=== PATIENT | male | born 1960 | race Caucasian/White ===

== ENCOUNTER 2017-03-09 14:07 | Emergency (ER) | payer MEDICARE, MEDICAID ==
[~2017-03-09] VITALS: Wt 91.2 kg
[~2017-03-09 14:07] MED LIST: ALDACTIZIDE 25-1 TAB PO; AMOXICILLIN500 MG PO; ANAPROX DS550 MG PO; ANTIBIOTIC PO; ARNUITY EL100 MCG/Ac IH; ASPIRIN CHILDRE81 MG PO; AUGMENTIN 875875 MG PO; BP MED; CHANTIX START M1 TAB PO; CILOXAN 5 ML5 M1 OP; CILOXAN 5 ML5 M1 OT; CIPROFLOXACIN500 MG PO; CORTISPORIN SUS10 ML OT; DIABETA1.25 MG PO; EFFEXOR50 MG PO; FLEXERIL10 MG PO; FLEXERIL5 MG PO; GLYBURIDE; HYDROCODONE BIT1 T11 PO; INVOKANA300 M1 PO; LEVAQUIN500 M2 PO; LIPITOR10 MG PO; LIPITOR20 MG PO; LOPRESSOR; Lopressor25 MG PO; METFORMIN500 MG PO; MOTRIN800 MG PO; NAPROSYN500 MG PO; PLAVIX75 MG PO; PREDNICOT20 MG PO; ROBAXIN500 MG PO; SEROQUEL200 MG PO; TOBRADEX 0.3-0.15 ML OT; TRAMADOL HCL50 MG PO; VICODIN 5/500 505 MG PO; VOLTAREN50 M1 PO; ZESTRIL10 MG PO; ZITHROMAX Z PA250 MG PO
[2017-03-09 14:15] VITALS: BP 97/57
[2017-03-09] MEDS ORDERED: AUGMENTIN 875875 MG PO (15:32)
[2017-03-09] MEDS ORDERED: ZYRTEC10 MG PO (15:32)
[2017-03-09] MEDS ORDERED: PREDNISONE20 M1 PO (15:32)
[2017-03-09] MEDS ORDERED: NAPROSYN500 MG PO (15:32)
== END 2017-03-09 15:35 | disposition home or self-care (01) ==
LOC: ED 14:07
DX: J01.90 Acute sinusitis, unspecified (principal); J40 Bronchitis, not specified as acute or chronic; R09.1 Pleurisy; F17.200 Nicotine dependence, unspecified, uncomplicated; Z88.7 Allergy status to serum and vaccine; Z79.82 Long term (current) use of aspirin

== ENCOUNTER → 2017-07-12 | Day surgery (SDC) | payer MEDICARE, MEDICAID ==
[~2017-07-12] VITALS: Ht 177.8 cm; Wt 96.2 kg
[~2017-07-12] MED LIST changes: +METFORMIN HCL1000 MG PO; +PREDNISONE20 M1 PO; +TRAD5TAB1 PO; +TRULICITY0.75 MG/0. SC; +VITAMIN C500 M6 PO; +VITAMIN E400 UNI1 PO; +ZYRTEC10 MG PO
--- NOTE | ~2017-07-12 | O ---
[place], [place] OPERATIVE NOTE NAME: JESUS KING UNIT #: [id number] ROOM: DOCTOR: PRABHAKAR RENEE MD BIRTHDATE: [birth year] DOS: A 57-year-old gentleman who has presented with colonic screening. ALLERGIES: No known medication. FAMILY HISTORY: Liver CA and colon CA in dad. PAST SURGICAL HISTORY: Tonsillectomy, bilateral myringotomy ear tube and cardiac stents x 1. PAST MEDICAL HISTORY: Hypertension, diabetes, naproxen for degenerative joint disease and pain. SOCIAL HISTORY: Smoker, who has stopped alcohol. PROCEDURE: Today's procedure part of investigation is colonoscopy plus snare polypectomy x 2. PREMEDICATION: Versed and Diprivan. SCOPE: Olympus forward-viewing colonoscope 10L video. REPORT: After putting the patient in the left lateral position and after application of lubricant to the scope, the scope was introduced. Thereafter, under direct visualization, I advanced through the length of colon without difficulty. Diverticulosis was identified. Sessile polypoid lesion on rectal pouch 1 in sigmoid colon with snare was polypectomized. Both samples recovered. Base of the cecum explored, appendiceal orifice identified and ileocecal valve was defined. Diverticulosis photographed and documented. Base of the cecum explored, appendiceal orifice identified and ileocecal valve was defined. Scope was gradually withdrawn. Patient extubated, tolerated the procedure well. PLAN: The patient to start his aspirin from Saturday morning and high fiber diet. ACTIVITY: Ad shalini. FOLLOWUP: Routinely with you in office, p.r.n. visit with us in [facility]. Thank you very much indeed for your kind referral. [place], [place] OPERATIVE NOTE NAME: JESUS KING UNIT #: [id number] ROOM: DOCTOR: PRABHAKAR RENEE MD BIRTHDATE: [birth year] PRABHAKAR RENEE MD CM:OPRECORD:OPERATIVE NOTE 1322 [id number] PRABHAKAR RENEE MD 07/16/17 1351 interface
[2017-07-12 11:15] VITALS: BP 117/74
[2017-07-12 13:12] VITALS: BP 118/80
[2017-07-12 13:27] VITALS: BP 126/85
[2017-07-12 13:43] VITALS: BP 128/80
== END | disposition home or self-care (01) ==
LOC: SDC 07-09 08:00
DX: Z12.11 Encounter for screening for malignant neoplasm of colon (principal); D12.5 Benign neoplasm of sigmoid colon; K62.1 Rectal polyp; I10 Essential (primary) hypertension; K57.30 Diverticulosis of large intestine without perforation or abscess without bleeding; E11.9 Type 2 diabetes mellitus without complications; M19.90 Unspecified osteoarthritis, unspecified site; Z79.899 Other long term (current) drug therapy; F17.210 Nicotine dependence, cigarettes, uncomplicated; Z95.5 Presence of coronary angioplasty implant and graft; Z98.890 Other specified postprocedural states; Z80.8 Family history of malignant neoplasm of other organs or systems; Z80.0 Family history of malignant neoplasm of digestive organs; I25.10 Atherosclerotic heart disease of native coronary artery without angina pectoris; I25.2 Old myocardial infarction; E78.00 Pure hypercholesterolemia, unspecified; J43.9 Emphysema, unspecified; Z87.01 Personal history of pneumonia (recurrent); Z82.49 Family history of ischemic heart disease and other diseases of the circulatory system; Z83.3 Family history of diabetes mellitus

== ENCOUNTER → 2017-07-25 | Outpatient (CLI) | payer MEDICARE, MEDICAID | END | disposition home or self-care (01) | LOC: D 10:11 | DX: E11.9 Type 2 diabetes mellitus without complications (principal) ==

== ENCOUNTER 2017-09-20 18:30 | Emergency (ER) | payer MEDICARE, MEDICAID ==
[~2017-09-20] VITALS: Wt 90.7 kg
[2017-09-20 18:34] VITALS: BP 129/71
[2017-09-20] MEDS ORDERED: Tobrex Ophth S2.5 ML OPH (18:54)
== END 2017-09-20 18:58 | disposition home or self-care (01) ==
LOC: ED 18:30
DX: H00.022 Hordeolum internum right lower eyelid (principal); R03.0 Elevated blood-pressure reading, without diagnosis of hypertension; F17.200 Nicotine dependence, unspecified, uncomplicated; Z88.7 Allergy status to serum and vaccine

== ENCOUNTER → 2017-10-08 | Outpatient (CLI) | payer MEDICARE, MEDICAID ==
[~2017-10-08] MED LIST changes: +Tobrex Ophth S2.5 ML OPH
== END | disposition home or self-care (01) ==
LOC: CT 10:29 → CP 12:00
DX: J32.0 Chronic maxillary sinusitis (principal); J32.2 Chronic ethmoidal sinusitis; R25.1 Tremor, unspecified

== ENCOUNTER → 2017-10-14 | Outpatient (CLI) | payer MEDICARE, MEDICAID ==
[2017-10-14 11:15] LABS: BILIRUBIN NEGATIVE (NEGATIVE); BLOOD NEGATIVE (NEGATIVE); CLARITY CLEAR (CLEAR); COLOR YELLOW (YELLOW); GLUCOSE NEGATIVE (NEGATIVE); KETONE NEGATIVE (NEGATIVE); LEUKO ESTERASE NEGATIVE (NEGATIVE); NITRITE NEGATIVE (NEGATIVE); PH 5.5 (5.0-9.0); SPECIFIC GRAVITY 1.025 (1.005-1.030); UROBILINOGEN 0.2 E.U./dl (0.2-1.0)
[2017-10-14 11:30] LABS: WBC 0-2 wbc/hpf (0-5)
[2017-10-14 11:46] LABS: ALBUMIN 3.9 gm/dl (3.1-4.5); BILIRUBIN, DIRECT 0.1 mg/dL (0.0-0.2); BUN 13 mg/dl (7-24); CHLORIDE 103 mmol/L (98-107); CHOLESTEROL 241 mg/dL (<200); CREATININE 0.89 mg/dL (0.70-1.30); POTASSIUM 3.8 mmol/L (3.5-5.1); SGOT/AST 17 IU/L (3-35); SGPT/ALT 28 U/L (12-78); SODIUM 137 mmol/L (136-145); TOTAL IRON BINDING CAPACITY 295 ug/dl (250-450); TRIGLYCERIDES 278 mg/dl (<150); VLDL CHOLESTEROL 56 mg/dL (6-40)
[2017-10-14 11:48] LABS: ALKALINE PHOSPHATASE 57 U/L (45-117); HDL CHOLESTEROL 38 mg/dl (40-60); LDL CHOLESTEROL 147 mg/dL (9-159)
[2017-10-14 12:25] LABS: VITAMIN D, 25-HYDROXY 33.5 ng/mL (30-100)
[2017-10-15 07:10] LABS: LUTEINIZING HORMONE 004283 3.8 mIU/mL (1.7-8.6); PROLACTIN 004465 7.4 ng/mL (4.0-15.2)
== END | disposition home or self-care (01) ==
LOC: LAB 10:40
PROVIDERS: Internal Medicine
DX: E11.40 Type 2 diabetes mellitus with diabetic neuropathy, unspecified (principal); E11.65 Type 2 diabetes mellitus with hyperglycemia; E78.5 Hyperlipidemia, unspecified; E29.1 Testicular hypofunction; E55.9 Vitamin D deficiency, unspecified; D64.9 Anemia, unspecified

== ENCOUNTER 2017-10-22 10:52 | Emergency (ER) | payer MEDICARE, MEDICAID ==
[~2017-10-22] VITALS: Wt 97.1 kg
[2017-10-22 10:54] VITALS: BP 137/89
[2017-10-22] MEDS ORDERED: AMOXICILLIN500 M2 PO (12:32)
[2017-10-22] MEDS ORDERED: ROBITUSSIN DM 105 ML PO (12:32)
[2017-10-22] MEDS ORDERED: PREDNISONE20 M1 PO (12:32)
== END 2017-10-22 13:28 | disposition home or self-care (01) ==
LOC: ED 10:52
DX: J20.9 Acute bronchitis, unspecified (principal); F17.200 Nicotine dependence, unspecified, uncomplicated; F10.10 Alcohol abuse, uncomplicated; Z79.84 Long term (current) use of oral hypoglycemic drugs; Z79.899 Other long term (current) drug therapy; Z88.8 Allergy status to other drugs, medicaments and biological substances

== ENCOUNTER → 2018-01-10 | Day surgery (SDC) | payer MEDICARE, MEDICAID ==
[~2018-01-10] VITALS: Ht 177.8 cm; Wt 93.0 kg
[~2018-01-10] MED LIST changes: +AMOXICILLIN500 M2 PO; +B121000 MCG/1 IM; +ROBITUSSIN DM 105 ML PO
--- NOTE | ~2018-01-10 | PROC NOTE ---
[place], [place] PROCEDURE NOTE NAME: [id number] UNIT #: [id number] ROOM: DOCTOR: VERONIQUE GOMEZ,AWLIDA BIRTHDATE: [birth year] DOS: 01/10/2018 PROCEDURE: Esophagogastroduodenoscopy and biopsy. INDICATIONS: Abdominal pain, nausea and belching. An informed consent was obtained from the patient after indication of procedure, the alternatives and potential complications were explained to him. PROCEDURE MEDICATION: Sedation was administered by Anesthesiology Department. Scope used was Olympus diagnostic adult upper endoscope GIF-180, that insertion was to descending duodenum. FINDINGS: After adequate sedation, the patient was placed in left lateral decubitus position. The scope was introduced under direct visualization through the upper esophageal sphincter into the esophagus. Esophageal mucosa appeared normal with no ulcerations or strictures. The lower esophageal sphincter was identified at 40 cm from incisors. Stomach was then intubated. Gastric mucosa inspected. The large amounts of food residues were seen suggestive of gastroparesis. Underlying mucosa showed evidence of gastritis and a CLOtest was performed from the gastric antrum and body. The pylorus was intubated easily. The duodenal bulb and descending duodenum were within normal range. Retroflexed views in the stomach showed no evidence of hiatal hernia. The scope was then withdrawn after the stomach was decompressed. The patient tolerated the procedure well. IMPRESSION: 1. Large amounts of food in the stomach, rule out gastroparesis. 2. Gastritis, TWAN test performed. PLAN: We will review the TWAN test results and treat the patient accordingly. RECOMMENDATIONS: The patient will be scheduled for a smart pill study to evaluate the GI motility. Office followup will be scheduled in 2-3 weeks. AWILDA PIPER MD CM:PROCNOTE:PROCEDURE NOTE 0825 1 LUCIANO CHEN MD
[2018-01-10 07:31] VITALS: BP 112/77
[2018-01-10 08:22] VITALS: BP 111/69
[2018-01-10 08:37] VITALS: BP 131/76
[2018-01-10 08:50] VITALS: BP 125/83
== END | disposition home or self-care (01) ==
LOC: SDC 01-06 08:00
DX: K29.70 Gastritis, unspecified, without bleeding (principal); I25.2 Old myocardial infarction; I25.10 Atherosclerotic heart disease of native coronary artery without angina pectoris; I10 Essential (primary) hypertension; E11.9 Type 2 diabetes mellitus without complications; F17.210 Nicotine dependence, cigarettes, uncomplicated; Z98.890 Other specified postprocedural states; Z95.5 Presence of coronary angioplasty implant and graft; Z79.899 Other long term (current) drug therapy; J43.9 Emphysema, unspecified; Z83.3 Family history of diabetes mellitus; Z80.9 Family history of malignant neoplasm, unspecified; Z82.49 Family history of ischemic heart disease and other diseases of the circulatory system

== ENCOUNTER → 2018-03-04 | Outpatient (CLI) | payer MEDICARE, MEDICAID ==
[2018-03-04 10:06] LABS: BILIRUBIN NEGATIVE (NEGATIVE); BLOOD NEGATIVE (NEGATIVE); CLARITY CLEAR (CLEAR); COLOR YELLOW (YELLOW); GLUCOSE 3+ (NEGATIVE); KETONE NEGATIVE (NEGATIVE); LEUKO ESTERASE NEGATIVE (NEGATIVE); NITRITE NEGATIVE (NEGATIVE); SPECIFIC GRAVITY 1.015 (1.005-1.030); UROBILINOGEN 0.2 E.U./dl (0.2-1.0)
[2018-03-04 10:10] LABS: BASO # 0.1 10*3/uL (0.0-0.1); BASO % 1.1 % (0.0-1.0); EOS # 0.4 10*3/uL (0.0-0.4); EOS % 4.8 % (1.0-4.0); HEMOGLOBIN 14.1 g/dl (14.0-18.0); LYMPH # 2.2 10*3/uL (1.3-4.4); LYMPH % 29.6 % (27.0-41.0); MEAN CELL VOLUME 91.7 fl (80.0-94.0); MEAN CORPUSCULAR HGB 30.1 pg (27.0-31.0); MEAN CORPUSCULAR HGB CONC 32.8 g/dl (33.0-37.0); MEAN PLATELET VOLUME 10.1 fl (9.6-12.3); MONO # 0.6 10*3/uL (0.1-1.0); MONO % 7.8 % (3.0-9.0); NEUT # 4.2 10*3/uL (2.3-7.9); NEUT % 56.3 % (47.0-73.0); PLATELET COUNT AUTOMATED 198 10*3/uL (130-400); RED BLOOD COUNT 4.69 10*6/uL (4.50-5.90); RED CELL DISTRI WIDTH 12.8 % (0-14.5); WHITE BLOOD COUNT 7.5 10*3/uL (4.8-10.8)
[2018-03-04 10:23] LABS: BACTERIA TRACE; EPITHELIAL CELLS 0-2
[2018-03-04 10:36] LABS: ALBUMIN 3.7 gm/dl (3.1-4.5); ALKALINE PHOSPHATASE 68 U/L (45-117); BUN 14 mg/dl (7-24); CHLORIDE 105 mmol/L (98-107); CHOLESTEROL 150 mg/dL (<200); CREATININE 0.82 mg/dL (0.70-1.30); HDL CHOLESTEROL 27 mg/dl (40-60); LDL CHOLESTEROL 84 mg/dL (9-159); POTASSIUM 3.9 mmol/L (3.5-5.1); SGOT/AST 10 IU/L (3-35); SGPT/ALT 21 U/L (12-78); SODIUM 139 mmol/L (136-145); TOTAL PROTEIN 7.2 gm/dL (6.4-8.2); TRIGLYCERIDES 197 mg/dl (<150); VLDL CHOLESTEROL 39 mg/dL (6-40)
[2018-03-04 10:37] LABS: BILIRUBIN, DIRECT 0.1 mg/dL (0.0-0.2)
[2018-03-06 00:08] LABS: TESTOSTERONE FREE, (DIRECT) 10.6 pg/mL (7.2-24.0)
== END | disposition home or self-care (01) ==
LOC: LAB 09:41
PROVIDERS: Internal Medicine
DX: Z12.5 Encounter for screening for malignant neoplasm of prostate (principal); E78.5 Hyperlipidemia, unspecified; E11.9 Type 2 diabetes mellitus without complications; N40.0 Benign prostatic hyperplasia without lower urinary tract symptoms; R35.1 Nocturia; E78.2 Mixed hyperlipidemia; I10 Essential (primary) hypertension; E11.65 Type 2 diabetes mellitus with hyperglycemia; E55.9 Vitamin D deficiency, unspecified

== ENCOUNTER 2018-06-07 14:37 | Emergency (ER) | payer OTHER, MEDICAID ==
[~2018-06-07] VITALS: Ht 157.4 cm; Wt 95.3 kg
[2018-06-07 14:39] VITALS: BP 120/73
== END 2018-06-07 14:52 | disposition home or self-care (01) ==
LOC: ED 14:37
DX: Z48.00 Encounter for change or removal of nonsurgical wound dressing (principal); F17.200 Nicotine dependence, unspecified, uncomplicated; Z95.5 Presence of coronary angioplasty implant and graft; Z79.899 Other long term (current) drug therapy; Z88.7 Allergy status to serum and vaccine; Z88.8 Allergy status to other drugs, medicaments and biological substances; Z91.018 Allergy to other foods

== ENCOUNTER → 2018-09-12 | Outpatient (CLI) | payer OTHER, MEDICAID ==
[~2018-09-12] MED LIST changes: +Bactroban Oint22 GM T; +KEFLEX500 M1 PO; +SEPTDS PO
[2018-09-12 12:43] LABS: BILIRUBIN NEGATIVE (NEGATIVE); BLOOD NEGATIVE (NEGATIVE); CLARITY CLEAR (CLEAR); COLOR YELLOW (YELLOW); GLUCOSE 3+ (NEGATIVE); KETONE NEGATIVE (NEGATIVE); LEUKO ESTERASE NEGATIVE (NEGATIVE); NITRITE NEGATIVE (NEGATIVE); PH 5.5 (5.0-9.0); SPECIFIC GRAVITY 1.025 (1.005-1.030); UROBILINOGEN 0.2 E.U./dl (0.2-1.0)
[2018-09-12 13:09] LABS: ALBUMIN 3.8 gm/dl (3.1-4.5); ALKALINE PHOSPHATASE 87 U/L (45-117); BILIRUBIN, DIRECT 0.1 mg/dL (0.0-0.2); BUN 13 mg/dl (7-24); CHLORIDE 106 mmol/L (98-107); CHOLESTEROL 170 mg/dL (<200); CREATININE 0.96 mg/dL (0.70-1.30); HDL CHOLESTEROL 30 mg/dl (40-60); LDL CHOLESTEROL 75 mg/dL (9-159); POTASSIUM 4.3 mmol/L (3.5-5.1); SGOT/AST 24 IU/L (3-35); SGPT/ALT 70 U/L (12-78); SODIUM 139 mmol/L (136-145); TOTAL PROTEIN 7.8 gm/dL (6.4-8.2); TRIGLYCERIDES 327 mg/dl (<150); VLDL CHOLESTEROL 65 mg/dL (6-40)
[2018-09-12 13:36] LABS: EPITHELIAL CELLS 0-2
[2018-09-12 13:40] LABS: VITAMIN D, 25-HYDROXY 29.3 ng/mL (30-100)
== END | disposition home or self-care (01) ==
LOC: LAB 12:08
PROVIDERS: Internal Medicine
DX: E11.40 Type 2 diabetes mellitus with diabetic neuropathy, unspecified (principal); E11.65 Type 2 diabetes mellitus with hyperglycemia; E55.9 Vitamin D deficiency, unspecified; E78.5 Hyperlipidemia, unspecified

== ENCOUNTER 2018-09-19 17:10 | Emergency (ER) | payer OTHER, MEDICAID ==
[~2018-09-19] VITALS: Ht 177.8 cm; Wt 96.2 kg
[2018-09-19 17:10] VITALS: BP 114/49
[~2018-09-19 17:10] MED LIST changes: -Bactroban Oint22 GM T; -KEFLEX500 M1 PO; -SEPTDS PO
[2018-09-19] MEDS ORDERED: Bactroban Oint22 GM T (17:25)
[2018-09-19] MEDS ORDERED: SEPTDS PO (17:25)
[2018-09-19] MEDS ORDERED: KEFLEX500 M1 PO (17:25)
== END 2018-09-19 17:40 | disposition home or self-care (01) ==
LOC: ED 17:10
DX: L02.811 Cutaneous abscess of head [any part, except face] (principal); Z88.7 Allergy status to serum and vaccine; Z91.018 Allergy to other foods; Z79.899 Other long term (current) drug therapy; Z79.84 Long term (current) use of oral hypoglycemic drugs

== ENCOUNTER → 2019-01-09 | Outpatient (CLI) | payer OTHER, MEDICAID ==
[~2019-01-09] MED LIST changes: +Bactroban Oint22 GM T; +KEFLEX500 M1 PO; +SEPTDS PO
[2019-01-09 09:57] LABS: BILIRUBIN NEGATIVE (NEGATIVE); BLOOD NEGATIVE (NEGATIVE); CLARITY CLEAR (CLEAR); COLOR YELLOW (YELLOW); GLUCOSE 3+ (NEGATIVE); KETONE NEGATIVE (NEGATIVE); LEUKO ESTERASE NEGATIVE (NEGATIVE); NITRITE NEGATIVE (NEGATIVE); PH 5.5 (5.0-9.0); SPECIFIC GRAVITY 1.015 (1.005-1.030); UROBILINOGEN 0.2 E.U./dl (0.2-1.0)
[2019-01-09 10:16] LABS: RBC 0-2 rbc/hpf (0-2); WBC 0-2 wbc/hpf (0-5)
[2019-01-09 10:26] LABS: ALBUMIN 3.8 gm/dl (3.1-4.5); BILIRUBIN, DIRECT 0.1 mg/dL (0.0-0.2); BUN 19 mg/dl (7-24); CHLORIDE 105 mmol/L (98-107); CHOLESTEROL 143 mg/dL (<200); CREATININE 0.93 mg/dL (0.70-1.30); SGOT/AST 16 IU/L (3-35); SGPT/ALT 33 U/L (12-78); SODIUM 136 mmol/L (136-145); TOTAL PROTEIN 7.5 gm/dL (6.4-8.2); TRIGLYCERIDES 217 mg/dl (<150); VLDL CHOLESTEROL 43 mg/dL (6-40)
[2019-01-09 10:29] LABS: ALKALINE PHOSPHATASE 70 U/L (45-117); HDL CHOLESTEROL 35 mg/dl (40-60); LDL CHOLESTEROL 65 mg/dL (9-159)
[2019-01-09 11:10] LABS: VITAMIN D, 25-HYDROXY 52.4 ng/mL (30-100)
== END | disposition home or self-care (01) ==
LOC: LAB 09:12
PROVIDERS: Internal Medicine
DX: N40.0 Benign prostatic hyperplasia without lower urinary tract symptoms (principal); E11.40 Type 2 diabetes mellitus with diabetic neuropathy, unspecified; E11.65 Type 2 diabetes mellitus with hyperglycemia; E55.9 Vitamin D deficiency, unspecified; E29.1 Testicular hypofunction

== ENCOUNTER → 2019-05-26 | Outpatient (CLI) | payer OTHER, MEDICAID ==
[2019-05-26 11:04] LABS: BILIRUBIN NEGATIVE (NEGATIVE); BLOOD NEGATIVE (NEGATIVE); CLARITY CLEAR (CLEAR); COLOR YELLOW (YELLOW); GLUCOSE 3+ (NEGATIVE); KETONE NEGATIVE (NEGATIVE); LEUKO ESTERASE NEGATIVE (NEGATIVE); NITRITE NEGATIVE (NEGATIVE); SPECIFIC GRAVITY 1.015 (1.005-1.030); UROBILINOGEN 0.2 E.U./dl (0.2-1.0)
[2019-05-26 11:10] LABS: RBC 0-2 rbc/hpf (0-2); WBC 0-2 wbc/hpf (0-5)
[2019-05-26 11:31] LABS: ALBUMIN 3.7 gm/dl (3.1-4.5); ALKALINE PHOSPHATASE 73 U/L (45-117); BILIRUBIN, DIRECT 0.2 mg/dL (0.0-0.2); BUN 8 mg/dl (7-24); CHLORIDE 105 mmol/L (98-107); CHOLESTEROL 115 mg/dL (<200); HDL CHOLESTEROL 41 mg/dl (40-60); LDL CHOLESTEROL 46 mg/dL (9-159); POTASSIUM 4.1 mmol/L (3.5-5.1); SGOT/AST 11 IU/L (3-35); SGPT/ALT 28 U/L (12-78); SODIUM 138 mmol/L (136-145); TOTAL PROTEIN 7.3 gm/dL (6.4-8.2); TRIGLYCERIDES 139 mg/dl (<150); VLDL CHOLESTEROL 28 mg/dL (6-40)
[2019-05-26 12:19] LABS: VITAMIN D, 25-HYDROXY 73.3 ng/mL (30-100)
== END | disposition home or self-care (01) ==
LOC: LAB 10:18
PROVIDERS: Internal Medicine
DX: E55.9 Vitamin D deficiency, unspecified (principal); E11.40 Type 2 diabetes mellitus with diabetic neuropathy, unspecified; E11.65 Type 2 diabetes mellitus with hyperglycemia; E78.5 Hyperlipidemia, unspecified; N40.0 Benign prostatic hyperplasia without lower urinary tract symptoms

== ENCOUNTER 2019-06-26 20:05 | Emergency (ER) | payer OTHER, MEDICAID ==
[~2019-06-26] VITALS: Ht 177.8 cm; Wt 97.5 kg
[2019-06-26 20:06] VITALS: BP 119/71
[2019-06-26] MEDS ORDERED: KEFLEX500 M1 PO (22:02)
== END 2019-06-26 22:17 | disposition home or self-care (01) ==
LOC: ED 20:05
DX: J02.9 Acute pharyngitis, unspecified (principal); Z88.7 Allergy status to serum and vaccine; Z91.018 Allergy to other foods; Z79.2 Long term (current) use of antibiotics; Z79.899 Other long term (current) drug therapy

== ENCOUNTER → 2019-09-28 | Outpatient (CLI) | payer OTHER, MEDICAID ==
[2019-09-28 10:41] LABS: BILIRUBIN NEGATIVE (NEGATIVE); BLOOD NEGATIVE (NEGATIVE); CLARITY CLEAR (CLEAR); COLOR YELLOW (YELLOW); GLUCOSE 3+ (NEGATIVE); KETONE NEGATIVE (NEGATIVE); LEUKO ESTERASE NEGATIVE (NEGATIVE); NITRITE NEGATIVE (NEGATIVE); PH 5.5 (5.0-9.0); UROBILINOGEN 0.2 E.U./dl (0.2-1.0)
[2019-09-28 11:03] LABS: BILIRUBIN, DIRECT 0.1 mg/dL (0.0-0.2); BUN 11 mg/dl (7-24); CHLORIDE 102 mmol/L (98-107); CHOLESTEROL 131 mg/dL (<200); CREATININE 1.02 mg/dL (0.70-1.30); POTASSIUM 4.2 mmol/L (3.5-5.1); SGOT/AST 18 IU/L (3-35); SGPT/ALT 34 U/L (12-78); SODIUM 136 mmol/L (136-145); TRIGLYCERIDES 185 mg/dl (<150); VLDL CHOLESTEROL 37 mg/dL (6-40)
[2019-09-28 11:07] LABS: ALKALINE PHOSPHATASE 80 U/L (45-117); HDL CHOLESTEROL 33 mg/dl (40-60); LDL CHOLESTEROL 61 mg/dL (9-159); TOTAL PROTEIN 7.9 gm/dL (6.4-8.2)
[2019-09-28 11:37] LABS: VITAMIN D, 25-HYDROXY 77.4 ng/mL (30-100)
[2019-09-28 12:28] LABS: BACTERIA TRACE
== END | disposition home or self-care (01) ==
LOC: LAB 09:49
PROVIDERS: Internal Medicine
DX: E11.40 Type 2 diabetes mellitus with diabetic neuropathy, unspecified (principal); E11.65 Type 2 diabetes mellitus with hyperglycemia; E78.5 Hyperlipidemia, unspecified; E55.9 Vitamin D deficiency, unspecified; R97.20 Elevated prostate specific antigen [PSA]

== ENCOUNTER 2019-11-21 11:24 | Emergency (ER) | payer OTHER, MEDICAID ==
[~2019-11-21] VITALS: Ht 177.8 cm; Wt 94.3 kg
[2019-11-21 11:27] VITALS: BP 115/67
[2019-11-21] MEDS ORDERED: CYCLOBENZAPRINE10 MG PO (13:14)
[2019-11-21] MEDS ORDERED: Motrin,Rufen400 MG PO (13:14)
== END 2019-11-21 13:11 | disposition home or self-care (01) ==
LOC: ED 11:24
DX: S16.1XXA Strain of muscle, fascia and tendon at neck level, initial encounter (principal); I10 Essential (primary) hypertension; I25.10 Atherosclerotic heart disease of native coronary artery without angina pectoris; E11.9 Type 2 diabetes mellitus without complications; I25.2 Old myocardial infarction; E78.00 Pure hypercholesterolemia, unspecified; J44.9 Chronic obstructive pulmonary disease, unspecified; F17.200 Nicotine dependence, unspecified, uncomplicated; Z88.7 Allergy status to serum and vaccine; Z91.018 Allergy to other foods; Z79.899 Other long term (current) drug therapy; X58.XXXA Exposure to other specified factors, initial encounter; Y93.89 Activity, other specified; Y92.89 Other specified places as the place of occurrence of the external cause; Y99.8 Other external cause status

== ENCOUNTER → 2019-12-24 | Outpatient (CLI) | payer OTHER, MEDICAID ==
[~2019-12-24] MED LIST changes: +CYCLOBENZAPRINE10 MG PO; +Motrin,Rufen400 MG PO
== END | disposition home or self-care (01) ==
LOC: CT 09:35
DX: J43.9 Emphysema, unspecified (principal); I10 Essential (primary) hypertension; E11.9 Type 2 diabetes mellitus without complications; F17.200 Nicotine dependence, unspecified, uncomplicated

== ENCOUNTER → 2020-07-21 | Outpatient (CLI) | payer OTHER, MEDICAID ==
[2020-07-21 10:38] LABS: ALBUMIN 3.8 gm/dl (3.1-4.5); BILIRUBIN, DIRECT 0.2 mg/dL (0.0-0.2); BUN 17 mg/dl (7-24); CHLORIDE 108 mmol/L (98-107); CHOLESTEROL 127 mg/dL (<200); CREATININE 1.18 mg/dL (0.70-1.30); HDL CHOLESTEROL 31 mg/dl (40-60); LDL CHOLESTEROL 65 mg/dL (9-159); POTASSIUM 4.5 mmol/L (3.5-5.1); SGOT/AST 18 IU/L (3-35); SGPT/ALT 32 U/L (12-78); SODIUM 140 mmol/L (136-145); TOTAL PROTEIN 7.4 gm/dL (6.4-8.2); TRIGLYCERIDES 157 mg/dl (<150); VLDL CHOLESTEROL 31 mg/dL (6-40)
[2020-07-21 10:40] LABS: ALKALINE PHOSPHATASE 55 U/L (45-117)
[2020-07-21 10:44] LABS: BILIRUBIN NEGATIVE (NEGATIVE); BLOOD NEGATIVE (NEGATIVE); CLARITY CLEAR (CLEAR); COLOR YELLOW (YELLOW); GLUCOSE 3+ (NEGATIVE); KETONE NEGATIVE (NEGATIVE); LEUKO ESTERASE NEGATIVE (NEGATIVE); NITRITE NEGATIVE (NEGATIVE); UROBILINOGEN 0.2 E.U./dl (0.2-1.0)
[2020-07-21 10:46] LABS: EPITHELIAL CELLS 0-2
[2020-07-21 11:28] LABS: VITAMIN D, 25-HYDROXY 78.1 ng/mL (30-100)
== END | disposition home or self-care (01) ==
LOC: LAB 09:46
PROVIDERS: Internal Medicine
DX: E11.40 Type 2 diabetes mellitus with diabetic neuropathy, unspecified (principal); E29.1 Testicular hypofunction; E11.65 Type 2 diabetes mellitus with hyperglycemia; E55.9 Vitamin D deficiency, unspecified; R97.20 Elevated prostate specific antigen [PSA]

== ENCOUNTER 2021-03-15 17:10 | Emergency (ER) | payer OTHER, MEDICAID ==
[~2021-03-15] VITALS: Ht 182.8 cm; Wt 108.9 kg
[2021-03-15 17:53] VITALS: BP 106/56
== END 2021-03-15 20:56 | disposition home or self-care (01) ==
LOC: ED 17:10
DX: M25.511 Pain in right shoulder (principal); Z88.8 Allergy status to other drugs, medicaments and biological substances; Z79.899 Other long term (current) drug therapy; Z79.84 Long term (current) use of oral hypoglycemic drugs; Z98.890 Other specified postprocedural states

== ENCOUNTER → 2021-05-10 | Outpatient (CLI) | payer OTHER, MEDICAID ==
[2021-05-10 13:40] LABS: HEMATOCRIT 38.8 % (42.0-52.0)
[2021-05-10 13:55] LABS: BILIRUBIN Negative (Negative); BLOOD Negative (Negative); CLARITY Clear (Clear); COLOR Yellow (Yellow); GLUCOSE 3+ (Negative); KETONE Negative (Negative); LEUKO ESTERASE Negative (Negative); NITRITE Negative (Negative); PH 5.5 (4.5-8.0); SPECIFIC GRAVITY 1.025 (1.001-1.030); UROBILINOGEN 0.2 E.U./dl (0.0-1.0)
[2021-05-10 14:11] LABS: ALBUMIN 3.6 gm/dl (3.1-4.5); ALKALINE PHOSPHATASE 85 U/L (45-117); BUN 10 mg/dl (7-24); CHLORIDE 106 mmol/L (98-107); CHOLESTEROL 111 mg/dL (<200); CREATININE 0.98 mg/dL (0.70-1.30); POTASSIUM 4.2 mmol/L (3.5-5.1); SGOT/AST 18 IU/L (3-35); SGPT/ALT 34 U/L (12-78); SODIUM 135 mmol/L (136-145); TOTAL PROTEIN 7.5 gm/dL (6.4-8.2)
[2021-05-10 14:17] LABS: BILIRUBIN, DIRECT 0.2 mg/dL (0.0-0.2); LDL CHOLESTEROL 64 mg/dL (9-159); TRIGLYCERIDES 109 mg/dl (<150)
[2021-05-10 14:22] LABS: VITAMIN D, 25-HYDROXY 80.7 ng/mL (30-100)
[2021-05-10 19:50] LABS: EPITHELIAL CELLS 0-2; HYALINE CAST 0-2; WBC 0-2 wbc/hpf (0-5)
== END | disposition home or self-care (01) ==
LOC: LAB 13:13
PROVIDERS: ATTEND Internal Medicine
DX: E11.65 Type 2 diabetes mellitus with hyperglycemia (principal); E11.40 Type 2 diabetes mellitus with diabetic neuropathy, unspecified; E78.5 Hyperlipidemia, unspecified; E55.9 Vitamin D deficiency, unspecified; R97.20 Elevated prostate specific antigen [PSA]

== ENCOUNTER → 2021-08-30 | Outpatient (CLI) | payer OTHER, MEDICAID ==
[2021-08-30 10:39] LABS: BILIRUBIN Negative (Negative); BLOOD Negative (Negative); CLARITY Clear (Clear); COLOR Yellow (Yellow); GLUCOSE 1+ (Negative); KETONE Negative (Negative); LEUKO ESTERASE Negative (Negative); NITRITE Negative (Negative); PH 6.5 (4.5-8.0); SPECIFIC GRAVITY 1.015 (1.001-1.030)
[2021-08-30 10:49] LABS: BACTERIA TRACE; CALCIUM OXALATE CRYSTALS 4+; EPITHELIAL CELLS 0-2; RBC 0-2 rbc/hpf (0-2); WBC 0-2 wbc/hpf (0-5)
[2021-08-30 10:54] LABS: ALBUMIN 3.7 gm/dl (3.1-4.5); ALKALINE PHOSPHATASE 80 U/L (45-117); BUN 11 mg/dl (7-24); CHLORIDE 105 mmol/L (98-107); CHOLESTEROL 89 mg/dL (<200); CREATININE 1.03 mg/dL (0.70-1.30); LDL CHOLESTEROL 28 mg/dL (9-159); POTASSIUM 4.1 mmol/L (3.5-5.1); SGOT/AST 23 IU/L (3-35); SGPT/ALT 37 U/L (12-78); SODIUM 136 mmol/L (136-145); TOTAL PROTEIN 7.2 gm/dL (6.4-8.2); TRIGLYCERIDES 166 mg/dl (<150)
[2021-08-30 12:17] LABS: VITAMIN D, 25-HYDROXY 68.7 ng/mL (30-100)
== END | disposition home or self-care (01) ==
LOC: LAB 10:14
PROVIDERS: ATTEND Internal Medicine
DX: E55.9 Vitamin D deficiency, unspecified (principal); E78.5 Hyperlipidemia, unspecified; E11.65 Type 2 diabetes mellitus with hyperglycemia; E29.1 Testicular hypofunction; E11.40 Type 2 diabetes mellitus with diabetic neuropathy, unspecified

== ENCOUNTER → 2022-03-13 | Outpatient (CLI) | payer OTHER ==
[~2022-03-13] MED LIST changes: +AMARYL4 MG PO; +CRESTOR40 M1 PO; +FENOFIBRATE54 MG PO; +HYDR12.5C PO; +SINGULAIR10 M1 PO; +VITAMIN D350 MC2 PO
== END | disposition home or self-care (01) ==
LOC: CARD 00:05
PROVIDERS: ATTEND Internal Medicine Cardiovascular Disease
DX: I25.10 Atherosclerotic heart disease of native coronary artery without angina pectoris (principal)

== ENCOUNTER → 2022-03-29 | Outpatient (CLI) | payer OTHER | END | disposition home or self-care (01) | LOC: CT 12:46 | PROVIDERS: ATTEND Family Medicine | DX: J43.9 Emphysema, unspecified (principal) ==

== ENCOUNTER → 2022-04-18 | Outpatient (CLI) | payer OTHER, MEDICAID | END | disposition home or self-care (01) | LOC: LAB 12:43 | PROVIDERS: ATTEND Family Medicine | DX: Z77.011 Contact with and (suspected) exposure to lead (principal) ==

== ENCOUNTER → 2022-05-03 | Outpatient (CLI) | payer OTHER, MEDICAID | LOC: RAD 13:04 | PROVIDERS: ATTEND Specialist | DX: M47.812 Spondylosis without myelopathy or radiculopathy, cervical region (principal) ==

== ENCOUNTER → 2022-05-23 | Day surgery (SDC) | payer OTHER, MEDICAID ==
[~2022-05-23] VITALS: Ht 177.8 cm; Wt 90.7 kg
[~2022-05-23] MED LIST changes: +OZEMPIC1 MG/0.75 SQ
[2022-05-23 07:53] VITALS: BP 115/73
[2022-05-23 08:54] VITALS: BP 113/78
[2022-05-23 09:09] VITALS: BP 128/86
[2022-05-23 09:24] VITALS: BP 124/72
== END ==
LOC: SDC 05-18 13:15
PROVIDERS: ATTEND Specialist
DX: H65.493 Other chronic nonsuppurative otitis media, bilateral (principal); I10 Essential (primary) hypertension; E11.9 Type 2 diabetes mellitus without complications; I25.2 Old myocardial infarction; I25.10 Atherosclerotic heart disease of native coronary artery without angina pectoris; J45.909 Unspecified asthma, uncomplicated; E78.00 Pure hypercholesterolemia, unspecified; J43.9 Emphysema, unspecified

== ENCOUNTER → 2022-08-08 | Outpatient (CLI) | payer OTHER, MEDICAID ==
[2022-08-08 10:40] LABS: BILIRUBIN Negative (Negative); BLOOD Negative (Negative); CLARITY Clear (Clear); COLOR Yellow (Yellow); GLUCOSE Trace (Negative); KETONE Negative (Negative); LEUKO ESTERASE Negative (Negative); NITRITE Negative (Negative); PH 5.5 (4.5-8.0)
[2022-08-08 10:51] LABS: CALCIUM OXALATE CRYSTALS 1+; MUCOUS 1+
[2022-08-08 10:58] LABS: ALKALINE PHOSPHATASE 59 U/L (45-117); BUN 12 mg/dl (7-24); CHLORIDE 109 mmol/L (98-107); CHOLESTEROL 95 mg/dL (<200); LDL CHOLESTEROL 25 mg/dL (9-159); POTASSIUM 4.1 mmol/L (3.5-5.1); SGOT/AST 21 IU/L (3-35); SGPT/ALT 31 U/L (12-78); SODIUM 138 mmol/L (136-145); TRIGLYCERIDES 191 mg/dl (<150)
[2022-08-08 11:37] LABS: VITAMIN D, 25-HYDROXY 59.3 ng/mL (30-100)
== END | disposition home or self-care (01) ==
LOC: LAB 10:02
PROVIDERS: ATTEND Internal Medicine
DX: E11.65 Type 2 diabetes mellitus with hyperglycemia (principal); E11.40 Type 2 diabetes mellitus with diabetic neuropathy, unspecified; R97.20 Elevated prostate specific antigen [PSA]; E78.5 Hyperlipidemia, unspecified; E29.1 Testicular hypofunction; E55.9 Vitamin D deficiency, unspecified

== ENCOUNTER → 2023-09-05 | Outpatient (CLI) | payer OTHER, MEDICAID ==
[~2023-09-05] MED LIST changes: +ASPIRIN ADULT L81 M1 PO; +INSULIN GL SQ; +LOPRESSOR25 MG PO; +PLAVIX75 M1 PO
== END | disposition home or self-care (01) ==
LOC: CARD 12:46
PROVIDERS: ATTEND Internal Medicine Cardiovascular Disease
DX: I65.23 Occlusion and stenosis of bilateral carotid arteries (principal)

== ENCOUNTER → 2023-09-26 | Outpatient (CLI) | payer OTHER, MEDICAID ==
[2023-09-30 04:05] LABS: CODFISH, IGE <0.10 kU/L (Class 0); EGG WHITE, IGE <0.10 kU/L (Class 0); MILK (COW), IGE <0.10 kU/L (Class 0); PEANUT, IGE <0.10 kU/L (Class 0); SOYBEAN, IGE <0.10 kU/L (Class 0); WHEAT, IGE <0.10 kU/L (Class 0)
[2023-09-30 08:06] LABS: ALTERNARIA ALTERNATA, IGE <0.10 kU/L (Class 0); AMERICAN ELM, IGE <0.10 kU/L (Class 0); ASPERGILLUS FUMIGATU, IGE <0.10 kU/L (Class 0); BERMUDA GRASS, IGE <0.10 kU/L (Class 0); BIRCH, COMMON SILVER IGE <0.10 kU/L (Class 0); CLADOSPORIUM HERBARU, IGE <0.10 kU/L (Class 0); D FARINAE MITE <0.10 kU/L (Class 0); D PTERONYSSINUS <0.10 kU/L (Class 0); DOG DANDER, IGE <0.10 kU/L (Class 0); MAPLE LEAF SYCAMORE, IGE <0.10 kU/L (Class 0); MAPLE/BOX ELDER, IGE <0.10 kU/L (Class 0); MOUSE URINE IGE <0.10 kU/L (Class 0); PENICILLIUM CHRYSOGENUM, IGE <0.10 kU/L (Class 0); ROUGH PIGWEED, IGE <0.10 kU/L (Class 0); SHEEP SORREL (DOCK), IGE <0.10 kU/L (Class 0); SHORT RAGWEED, IGE <0.10 kU/L (Class 0); TIMOTHY, IGE <0.10 kU/L (Class 0); WALNUT TREE, IGE <0.10 kU/L (Class 0); WHITE ASH, IGE <0.10 kU/L (Class 0); WHITE MULBERRY, IGE <0.10 kU/L (Class 0); WHITE OAK, IGE <0.10 kU/L (Class 0)
== END | disposition home or self-care (01) ==
LOC: LAB 11:34
PROVIDERS: Student in an Organized Health Care Education/Training Program; ATTEND Family Medicine
DX: E11.65 Type 2 diabetes mellitus with hyperglycemia (principal); E78.00 Pure hypercholesterolemia, unspecified; J44.9 Chronic obstructive pulmonary disease, unspecified; I25.10 Atherosclerotic heart disease of native coronary artery without angina pectoris; I10 Essential (primary) hypertension; Z86.73 Personal history of transient ischemic attack (TIA), and cerebral infarction without residual deficits; Z79.4 Long term (current) use of insulin; Z72.0 Tobacco use; Z88.9 Allergy status to unspecified drugs, medicaments and biological substances; Z79.899 Other long term (current) drug therapy; G47.33 Obstructive sleep apnea (adult) (pediatric)

== ENCOUNTER → 2023-10-19 | Outpatient (CLI) | payer OTHER, MEDICAID | END | disposition home or self-care (01) | LOC: US 01:12 | PROVIDERS: ATTEND Nurse Practitioner Family | DX: R59.0 Localized enlarged lymph nodes (principal) ==

== ENCOUNTER → 2024-12-11 | Outpatient (CLI) | payer OTHER, MEDICAID ==
[2024-12-11 09:35] LABS: BASO # 0.1 10*3/uL (0.0-0.1); EOS # 0.2 10*3/uL (0.0-0.4); EOS % 3.4 % (1.0-4.0); HEMATOCRIT 44.1 % (42.0-52.0); MEAN CELL VOLUME 90.2 fl (80.0-94.0); MEAN CORPUSCULAR HGB 30.5 pg (27.0-31.0); MEAN CORPUSCULAR HGB CONC 33.8 g/dl (33.0-37.0); MEAN PLATELET VOLUME 10.2 fl (9.6-12.3); MONO # 0.5 10*3/uL (0.1-1.0); MONO % 7.8 % (3.0-9.0); NEUT % 59.1 % (47.0-73.0); PLATELET COUNT AUTOMATED 197 10*3/uL (130-400); RED BLOOD COUNT 4.89 10*6/uL (4.50-5.90); RED CELL DISTRI WIDTH 12.1 % (0-14.5); WHITE BLOOD COUNT 6.7 10*3/uL (4.8-10.8)
[2024-12-11 10:08] LABS: ALKALINE PHOSPHATASE 70 U/L (46-116); BUN 12 mg/dl (9-23); CHLORIDE 105 mmol/L (98-107); CHOLESTEROL 98 mg/dL (<200); LDL CHOLESTEROL 25 mg/dL (9-159); SGPT/ALT 11 U/L (5-49); TOTAL PROTEIN 7.7 gm/dL (6.0-8.0); TRIGLYCERIDES 196 mg/dl (<150)
== END | disposition home or self-care (01) ==
LOC: LAB 09:02
PROVIDERS: ATTEND Nurse Practitioner Family
DX: E11.9 Type 2 diabetes mellitus without complications (principal); E78.2 Mixed hyperlipidemia; I10 Essential (primary) hypertension; E55.9 Vitamin D deficiency, unspecified